=== PATIENT | male | born 2000 | race Caucasian/White ===

== ENCOUNTER 2024-01-26 11:07 | Outpatient (REF) | payer OTHER, SELFPAY ==
[2024-01-26 13:07] LABS: MANUAL DIFF FLAG NO
[2024-01-26 13:11] LABS: Basophils Percent Auto 0.2 % (0-2); Eosinophils Absolute Auto 0.1 X10*3/uL (0.0-0.4); Eosinophils Percent Auto 1.1 % (0-4); Hematocrit 44.2 % (42.0-52.0); Hemoglobin 15.4 g/dl (14.0-18.0); Imm Gran Abs Auto 0.01 X10*3/uL (0.00-0.03); Imm Gran Pct Auto 0.2 % (0.0-0.4); Lymphocytes Absolute Auto 1.8 X10*3/uL (1.2-4.9); Lymphocytes Percent Auto 40.9 % (20-40); Mean Corpuscular HGB Conc 34.8 g/dl (31.0-36.0); Mean Corpuscular Hemoglobin 30.7 pg (27.0-33.0); Mean Corpuscular Volume 88.2 fL (80.0-98.0); Monocytes Absolute Auto 0.4 X10*3/uL (0.1-1.2); Neutrophils Absolute Auto 2.2 x10*3/uL (2.0-8.3); Neutrophils Percent Auto 49.6 % (45-73); Platelet Count 184 X10*3/uL (160-400); Red Blood Count 5.01 X10*6/uL (4.60-5.80); Red Cell Distribution Width 12.1 % (11.0-16.0); White Blood Count 4.4 X10*3/uL (4.8-10.8)
[2024-01-26 13:42] LABS: Alanine Aminotransferase 64 U/L (0-40); Albumin Level 4.4 g/dL (3.5-5.0); Alkaline Phosphatase 83 U/L (39-117); Anion Gap 10 (12-20); Aspartate Amino Transferase 37 U/L (5-37); Bilirubin Total 0.5 mg/dL (0.0-1.0); Blood Urea Nitrogen 21 mg/dL (9-16); Calcium 9.1 mg/dL (8.4-10.2); Carbon Dioxide 26 mmol/L (22-29); Chloride 109 mmol/L (96-108); Cholesterol 238 mg/dL (<200); Estimated Glomerular Filt Rate > 60; Glucose Fasting 104 mg/dL (60-99); HDL Cholesterol 31 mg/dL (>40); LDL Cholesterol Calculated 177 mg/dL (<100); Potassium 4.3 mmol/L (3.3-5.1); Sodium 141 mmol/L (135-145); Total Protein 6.7 g/dL (6.5-8.0); Triglycerides 151 mg/dL (<150)
[2024-01-26 14:00] LABS: Thyroid Stimulating Hormone 1.18 uIU/mL (0.32-4.0); Vitamin D 25-OH Total 47.6 ng/mL (>30)
[2024-01-27 15:23] LABS: Gliadin Deamidated IgA Ab 3.2 U/mL; Gliadin Deamidated IgG Ab <1.0 U/mL; Transglutaminase IgA 2.5 U/mL
== END 2024-01-26 11:08 | disposition home or self-care (01) ==
LOC: HO.HMGCLDS 11:07
PROVIDERS: PCP Internal Medicine; Visit Provider Internal Medicine
DX: K90.41 Non-celiac gluten sensitivity (principal); Z83.79 Family history of other diseases of the digestive system
CPT/HCPCS: 36415; 80053; 80061; 82306; 84443; 85025; 86140; 86258; 86364

== ENCOUNTER 2024-12-05 10:23 | Outpatient (REF) | payer BC, SELFPAY ==
[2024-12-05 13:19] LABS: MANUAL DIFF FLAG NO
[2024-12-05 13:27] LABS: Basophils Percent Auto 0.4 % (0-2); Eosinophils Percent Auto 0.6 % (0-4); Hematocrit 41.5 % (42.0-52.0); Hemoglobin 14.1 g/dl (14.0-18.0); Imm Gran Abs Auto 0.01 X10*3/uL (0.00-0.03); Imm Gran Pct Auto 0.2 % (0.0-0.4); Lymphocytes Absolute Auto 1.9 X10*3/uL (1.2-4.9); Mean Corpuscular Hemoglobin 30.7 pg (27.0-33.0); Mean Corpuscular Volume 90.2 fL (80.0-98.0); Mean Platelet Volume 10.7 fL (9.4-12.4); Monocytes Absolute Auto 0.4 X10*3/uL (0.1-1.2); Monocytes Percent Auto 6.6 % (2-11); Neutrophils Absolute Auto 3.1 x10*3/uL (2.0-8.3); Neutrophils Percent Auto 57.2 % (45-73); Platelet Count 211 X10*3/uL (160-400); Red Cell Distribution Width 12.1 % (11.0-16.0); White Blood Count 5.3 X10*3/uL (4.8-10.8)
[2024-12-05 13:42] LABS: Estimated Average Glucose 94 mg/dL; Hemoglobin A1C 114.2622 umol/L; Hemoglobin A1c % 4.9 % (<6.0)
[2024-12-05 14:05] LABS: PSA,Total (Free>4and<10) 0.32 ng/mL (0.00-4.00)
[2024-12-05 14:11] LABS: Alanine Aminotransferase 38 U/L (0-40); Albumin Level 4.9 g/dL (3.5-5.0); Alkaline Phosphatase 78 U/L (39-117); Anion Gap 12 (12-20); Aspartate Amino Transferase 56 U/L (5-37); Bilirubin Direct 0.2 mg/dL (0.0-0.5); Bilirubin Total 0.8 mg/dL (0.0-1.0); Blood Urea Nitrogen 17 mg/dL (9-16); C Reactive Protein 0.11 mg/dL (< or = 0.50); Calcium 9.7 mg/dL (8.4-10.2); Carbon Dioxide 26 mmol/L (22-29); Chloride 106 mmol/L (96-108); Cholesterol 187 mg/dL (<200); Estimated Glomerular Filt Rate > 60; Glucose Fasting 94 mg/dL (60-99); HDL Cholesterol 39 mg/dL (>40); LDL Cholesterol Calculated 136 mg/dL (<100); Magnesium 1.9 mg/dL (1.6-2.6); Potassium 4.1 mmol/L (3.3-5.1); Sodium 140 mmol/L (135-145); Triglycerides 60 mg/dL (<150); Vitamin D 25-OH Total 59.4 ng/mL (>30)
[2024-12-05 14:28] LABS: Vitamin B12 503 pg/mL (200-900)
[2024-12-06 06:28] LABS: DHEA Sulfate 312 mcg/dL (74-617)
[2024-12-06 10:09] LABS: Lyme Abs Screen <0.90 index
[2024-12-08 19:59] LABS: Lipoprotein A 113 nmol/L (<75)
[2024-12-12 02:59] LABS: Dihydrotestosterone 23 ng/dL (12-65)
[2024-12-17 00:59] LABS: Testosterone, Free 68.1 pg/mL (35.0-155.0); Testosterone, Total 508 ng/dL (250-1100)
== END 2024-12-05 10:24 | disposition home or self-care (01) ==
LOC: HO.HMGCLDS 10:23
PROVIDERS: PCP Internal Medicine; Visit Provider Physician Assistant Medical
DX: Z00.01 Encounter for general adult medical examination with abnormal findings (principal); Z76.89 Persons encountering health services in other specified circumstances; K64.9 Unspecified hemorrhoids; D72.819 Decreased white blood cell count, unspecified; E78.00 Pure hypercholesterolemia, unspecified; R74.01 Elevation of levels of liver transaminase levels; E66.3 Overweight; Z68.29 Body mass index [BMI] 29.0-29.9, adult; Z13.31 Encounter for screening for depression; Z12.5 Encounter for screening for malignant neoplasm of prostate; Z13.1 Encounter for screening for diabetes mellitus
CPT/HCPCS: 36415; 80053; 80061; 80076; 82248; 82306; 82607; 82627; 82642; 82746; 83036; 83695; 83735; 84153; 84402; 84403; 84443; 85025; 86140; 86617; 86618; 96127

== ENCOUNTER 2024-12-05 10:23 | Outpatient (AMB) | payer BC, SELFPAY ==
--- NOTE | 2024-12-05 10:24 | A.OFFPC_ITS ---
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 Accompanied by: Self / Same As Patient Allergies penicillin V Allergy (Unknown, Verified 12/05/24 10:53) Rash Penicillins (PENICILLINS) Allergy (Unknown, Verified 12/05/24 10:53) HIVES Medication List - Last Reconciled 12/05/24 by Nusrat Rivera PA-C No Known Home Meds Tobacco use date assessed: 12/05/24 Dental Screening Dental Screen Date: 12/05/24 Did you have a dental visit in the last 12 months?: No Did you have a dental problem in the last 6 months where you did not have access to dental care?: No HPI Physical HPI Details The patient is a 24-year-old male presenting for an annual physical examination and evaluation of blood in stool. He reports experiencing blood in his stool, which is bright red and not associated with pain, constipation, or straining. The patient suspects hemorrhoids as the cause, potentially exacerbated by heavy lifting and abdominal training. The patient has a history of low white blood cell count, with a previous measurement of 4,000, slightly below the normal range. He was informed that this could be due to inflammation or an underlying illness, and a recheck is planned. The patient has a history of elevated cholesterol, with a total cholesterol level of 238 mg/dL and LDL cholesterol at 177 mg/dL. He has been advised to reduce red meat intake and increase physical activity to manage cholesterol levels. The patient has a history of elevated liver enzymes, specifically an ALT level of 64 U/L, which will be rechecked. The patient reports a headache experienced after prolonged sun exposure, which resolved without intervention. The patient has a surgical history of left ankle reconstruction, left knee surgery, and a recent left thumb UCL surgery. 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 - Exercise: Engages in heavy lifting and abdominal training regularly. - Nutrition: Previously consumed a diet high in red meat, now attempting to eat healthier. - Family: Lives with mother, has a young er half-sister and an older brother. [facility] Medical History (Updated 12/05/24 @ 11:26 by Nusrat Rivera PA-C) Overweight with body mass index (BMI) of 29 to 29.9 in adult Elevated ALT measurement Pure hypercholesterolemia, unspecified Hyperlipidemia LDL goal <100 Leukopenia Hemorrhoids Annual physical exam Encounter to establish care Family History Father No problems noted. Mother Hypertaurodontism Social History Housing: House Alcohol intake: current Alcohol intake frequency: a few times a week Alcohol type: beer Patient Tobacco Use Status: Current someday Tobacco user service: No Current occupational status: employed Cognitive needs: No Hearing needs: No Vision needs: No Questionnaire PHQ-9 Over the last 2 weeks, how often have you been bothered by any of the following problems? 1. Little interest or pleasure in doing things: not at all 2. Feeling down, depressed, or hopeless: not at all 3. Trouble falling or staying asleep, or sleeping too much: not at all 4. Feeling tired or having little energy: not at all 5. Poor appetite or overeating: not at all 6. Feeling bad about yourself - or that you are a failure or have let yourself or your family down: not at all 7. Trouble concentrating on things, such as reading the newspaper or watching television: not at all 8. Moving or speaking so slowly that other people could have noticed. Or the opposite - being so fidgety or restless that you have been moving around a lot more than usual: not at all 9. Thoughts that you would be better off or of hurting yourself in some way: not at all Total score: 0 Depression Screening Interpretation: Negative Depression Screening Done: Yes 28733 - PHQ-9 Billing: Yes Source: Developed by Drs. Abelardo Palma, Zahra Shepard, Luigi Moeller and colleagues, with an educational marilyn from [employer]. Thrive Questionnaire Date Thrive assessed: 12/05/24 I am a: Patient What is your living situation today?: I have a steady place to live Within the past 12 months, did the food you bought not last and you didn't have the money to get more?: Never true Within the past 12 months, did you worry whether your food would run out before you got money to buy more?: Never true Do you have trouble paying for medicines?: No Do you have trouble getting transportation to medical appointments?: No Do you have trouble paying your heating and electricity bill?: No Do you have trouble taking care of your child, family member or friend?: No Do you have trouble with day-to-day activities such as bathing, preparing meals, shopping, managing finances, etc.?: No Are you currently unemployed and looking for a job?: No Are you interested in more education?: No Please select the resources that you would like help with: None Currently or been in a relationship where the following occur: No concerns reported THRIVE Score: 0 AUDIT C Alcohol Use Questionnaire (AUDIT-C) 1. How often do you have a drink containing alcohol?: 2-3 times a week 2. How many drinks containing alcohol do you have on a typical day when you are drinking?: 3 or 4 3. How often do you have six or more drinks on one occasion?: Never Total Score: 4 Score Reviewed/Action Taken: No FLORENCIO-7 AMB Questionnaire FLORENCIO-7 Date FLORENCIO - 7 assessed: 12/05/24 Feeling nervous, anxious, or on edge: 0 = Not at all Not being able to stop or control worryin = Not at all Worrying too much about different things: 0 = Not at all Trouble relaxin = Not at all Being so restless that it is hard to sit still: 0 = Not at all Becoming easily annoyed or irritable: 0 = Not at all Feeling afraid as if something awful might happen: 0 = Not at all Total FLORENCIO-7 score (0-4 normal; 5-9 mild; 10-14 moderate; 15-21 severe): 0 Source: Developed by Drs. Abelardo Palma, Zahar Shepard, Luigi Moeller and colleagues, with an educational marilyn from [employer]. FLORENCIO-7 Assessment Billing FLORENCIO-7 Assessment Tool: FLORENCIO-7 Assessment 18929 Review of Systems Const Details: - Gastrointestinal: Reports blood in stool, denies abdominal pain or constipation. - Neurological: Reports headache after sun exposure, denies ongoing headaches or dizziness. - Cardiovascular: Denies chest pain or dyspnea. - Respiratory: Denies shortness of breath. - Musculoskeletal: Denies joint pain or swelling. Physical exam (Primary Care) Vital Signs: Last Vital Signs Temp 98.8 F 12/05/24 10:33 Pulse 60 12/05/24 10:33 Resp 16 12/05/24 10:33 BP 110/80 12/05/24 10:33 Pulse Ox 96 12/05/24 10:33 Oxygen Delivery Method Room Air 12/05/24 10:33 Care Plan Goal for BP management: <140/90 at Goal BMI result Body Mass Index 18.8 BMI Assessment/Plan discussion: High BMI High, discussed plan: lifestyle, weight reduction, dietary, physical activity and alcohol moderation Tobacco/Smoking Status: Tobacco use Status Tobacco use date assessed 12/05/24 12/05/24 10:28 Patient Tobacco Use Status Former Tobacco user 12/05/24 10:47 PHQ-9: PHQ-9 Score PHQ-9: Total score 0 12/05/24 10:48 Depression Screening Interpretation: Negative Thrive Assessment: Date of Thrive Assessment Date Thrive assessed 12/05/24 12/05/24 10:28 Currently or been in a relationship where the following occur: No concerns reported Const Other: Appearance: Alert. Oriented X3. No acute distress. Head: Normal external exam. Normocephalic. Atraumatic. Eyes: Pupils are equal, round, and reactive to light. Extraocular movements intact. Conjunctiva and sclera normal. Eyelids normal. Ears: External auditory canal normal. Tympanic membranes normal. Throat: Pharynx normal. Uvula midline. Moist mucous membranes. Neck: Normal inspection. Neck supple. Full range of motion. No adenopathy. Thyroid Normal. No meningeal signs. No neck mass noted. Cardiovascular: Normal heart rate and rhythm. Heart sound normal. No murmurs noted. Pulses normal throughout. Respiratory: No respiratory distress. Painless inspiration. Breath sounds normal. No wheezes/rales/rhonchi noted. Chest nontender. No accessory muscle usage noted or decreased air movement noted. Abdomen: Soft and nontender. Bowel sounds normal in all 4 quadrants. No distention noted. No organomegaly noted. No visible injury noted. Back: No costovertebral angle tenderness. Full range of motion noted. Skin: Skin warm and dry. Normal skin color. Normal skin turgor. No rashes/lesions/lacerations noted. Extremities: No lower extremity edema. Extremities exhibit normal range of motion. Extremities nontender. History of left ankle reconstruction and left knee surgery. Recent left thumb UCL surgery. Neuro: Oriented X 3. No motor deficit. No sensory deficit. Reflexes normal. Recent headache noted, likely due to sun exposure, resolved. Results Reviewed Results Reviewed: - Labs: Previous white blood cell count was 4,000/?L, ALT was 64 U/L, total cholesterol was 238 mg/dL, LDL cholesterol was 177 mg/dL, triglycerides were 151 mg/dL. Coding Level of Care Code New Pt Level 4 (17434) New Pt Prev Care 18-39yr(75343 Diagnoses Encounter to establish care Z76.89 Annual physical exam Z00.00 Hemorrhoids K64.9 Leukopenia D72.819 Hyperlipidemia LDL goal <100 E78.5 Pure hypercholesterolemia, unspecified E78.00 Elevated ALT measurement R74.01 Overweight with body mass index (BMI) of 29 to 29.9 in adult E66.3; Z68.29 Additional Codes PHQ-9 - 73628 - PHQ-9 Billing: Yes ([id number]) FLORENCIO-7 Assessment Billing - FLORENCIO-7 Assessment Tool: FLORENCIO-7 Assessment 95445 ([id number]) Assessment & Plan Assessment & Plan (1) Encounter to establish care: Code(s): Z76.89 - Persons encountering health services in other specified circumstances Category: Medical (2) Annual physical exam: Code(s): Z00.00 - Encounter for general adult medical examination without abnormal findings Category: Medical (3) Hemorrhoids: Code(s): K64.9 - Unspecified hemorrhoids Category: Medical Plan: The patient reports bright red blood in stool, suspected to be due to hemorrhoids, potentially exacerbated by heavy lifting and abdominal training. A referral to gastroenterology may be considered if symptoms persist, and a colonoscopy may be warranted to rule out other causes of rectal bleeding. (4) Leukopenia: Code(s): D72.819 - Decreased white blood cell count, unspecified Category: Medical Plan: The patient's previous white blood cell count was slightly below normal at 4,000/?L. A repeat complete blood count (CBC) is planned to monitor the white blood cell count and assess for any underlying conditions. (5) Hyperlipidemia LDL goal <100: Code(s): E78.5 - Hyperlipidemia, unspecified Category: Medical Plan: The patient has elevated cholesterol levels, with a total cholesterol of 238 mg/dL and LDL cholesterol of 177 mg/dL. Lifestyle modifications, including dietary changes to reduce red meat intake and increased physical activity, are recommended. A repeat lipid panel will be conducted to evaluate the effectiveness of these interventions. Condition is chronic and stable will continue to monitor. (6) Pure hypercholesterolemia, unspecified: Code(s): E78.00 - Pure hypercholesterolemia, unspecified Category: Medical Plan: The patient has elevated cholesterol levels, with a total cholesterol of 238 mg/dL and LDL cholesterol of 177 mg/dL. Lifestyle modifications, including dietary changes to reduce red meat intake and increased physical activity, are recommended. A repeat lipid panel will be conducted to evaluate the effectiveness of these interventions. Condition is chronic and stable will continue to monitor. (7) Elevated ALT measurement: Code(s): R74.01 - Elevation of levels of liver transaminase levels Category: Medical Plan: The patient's ALT level was previously elevated at 64 U/L. A follow-up liver function test is planned to monitor enzyme levels and assess liver health. (8) Overweight with body mass index (BMI) of 29 to 29.9 in adult: Code(s): E66.3 - Overweight; Z68.29 - Body mass index [BMI] 29.0-29.9, adult Category: Medical Plan: Patient to improve diet and exercise regimen. Condition is chronic and stable will continue to monitor. Plan Plan Patient was informed and verbally consented to the use of an ambient scribe for clinic note documentation during this visit. 1. Hemorrhoids The patient reports bright red blood in stool, suspected to be due to hemorrhoids, potentially exacerbated by heavy lifting and abdominal training. A referral to gastroenterology may be considered if symptoms persist, and a colonoscopy may be warranted to rule out other causes of rectal bleeding. 2. Low White Blood Cell Count The patient's previous white blood cell count was slightly below normal at 4,000/?L. A repeat complete blood count (CBC) is planned to monitor the white blood cell count and assess for any underlying conditions. 3. Elevated Cholesterol The patient has elevated cholesterol levels, with a total cholesterol of 238 mg/dL and LDL cholesterol of 177 mg/dL. Lifestyle modifications, including diet hussain changes to reduce red meat intake and increased physical activity, are recommended. A repeat lipid panel will be conducted to evaluate the effectiveness of these interventions. 4. Elevated Liver Enzymes The patient's ALT level was previously elevated at 64 U/L. A follow-up liver function test is planned to monitor enzyme levels and assess liver health. During the visit, we discussed the patient's symptoms of blood in stool, likely due to hemorrhoids, and the potential need for a gastroenterology referral if symptoms persist. We reviewed the patient's low white blood cell count and planned for a repeat CBC to monitor levels. The patient's elevated cholesterol was addressed with recommendations for dietary changes and increased physical activity, with a follow-up lipid panel planned. We also discussed the elevated liver enzymes and the need for a follow-up liver function test. Orders: Orders C Reactive Protein Today Z00.00 - Encounter for general adult medical examination without abnormal findings Lipid Panel Today Z00.00 - Encounter for general adult medical examination without abnormal findings Liver Panel Today Z00.00 - Encounter for general adult medical examination without abnormal findings Vitamin B12 and Folate Today Z00.00 - Encounter for general adult medical examination without abnormal findings Vitamin D 25-OH Total Today Z00.00 - Encounter for general adult medical examination without abnormal findings Magnesium Today Z00.00 - Encounter for general adult medical examination without abnormal findings Complete Blood Count Auto Diff Today Z00.00 - Encounter for general adult medical examination without abnormal findings Comprehensive [place]. Panel Fast Today Z00.00 - Encounter for general adult medical examination without abnormal findings Hemoglobin A1c Today Z00.00 - Encounter for general adult medical examination without abnormal findings PSA,Total (Free>4and<10) Today Z00.00 - Encounter for general adult medical examination without abnormal findings TSH reflex Free T4 Today Z00.00 - Encounter for general adult medical examination without abnormal findings Testosterone, Free/Total Today Z00.00 - Encounter for general adult medical examination without abnormal findings DHEA Sulfate Today Z00.00 - Encounter for general adult medical examination without abnormal findings Dihydrotestosterone Today Z00.00 - Encounter for general adult medical examination without abnormal findings Lyme IgG/IgM w/reflex to WB Today Z00.00 - Encounter for general adult medical examination without abnormal findings Lipoprotein A Today Z00.00 - Encounter for general adult medical examination without abnormal findings Patient Instructions: - Schedule and complete blood work as discussed, including CBC, lipid panel, and liver function tests. - Maintain a healthy diet, reducing red meat intake and increasing physical activity. - Monitor for persistent or worsening symptoms of rectal bleeding and report to healthcare provider. - Follow up with healthcare provider for results and further management as needed.
[2024-12-05 10:33] VITALS: BP 110/80; PULSE 60; RESP 16; TEMP 37.1; O2SAT 96; BMI 29.3
--- OUTSIDE RECORDS SUMMARY | 2024-12-05 12:06 | XMS_ITS | Clinical Summary ---
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 Immunizations Immunization Administration Dates Next Due DTaP 5 10/20/2006, 3,2001, 002,2001 H1N1 05/17/2009 HPV Vaccine 9 Valent 01/30/2016,03/11/2015,01/29 Hep A, ped/adol 02/02/2017,01/30/2016 Hep B, ped/adol 03/23/2002,2001,2001 Hib (PRP-T) 08/07/2002, 2,2001, 002 Influenza Split 06/21/2012,03/29/2011,05/01/2010 Influenza, injectable, trivalent 06/12/2009 Influenza, intranasal, quadrivalent 03/11/2015 MMR 09/27/2006,08/07/2002 Meningococcal B Trumenba 05/13/2020 Meningococcal Conj (Menactra) MCV4P 02/02/2018,0 12/11/2013 OPV 10/20/2006, 3,2001, 002 Pneumococcal Conjugate 08/02/2002,2001,2001, 002 Tdap 12/11/2013 Varicella 06/12/2009,08/07/2002 Family History Medical History Relation Name Comments No Known Problems Father Laureano Heart attack Maternal Grandfather Hypothyroidism Mother Eloina Anxiety disorder Other Depression Other Pancreatic cancer Paternal Grandfather Relation Name Status Comments Brother Alive Brother: Alive and well Father Laureano Alive Father: Alive a nd well Father's Brother Paternal un teresa: Anxiety Father's Sister Paternal aun t: Anxiety Maternal Grandfather Alive Maternal Grandmother Alive Mother Eloina Alive Mother: Alive a nd well Other No family histo ry of CVA (Stroke), No family history of Hyperlipidemia, No family history of Developmental dislocation of hip, No family history of Obesity, Family history of Asthma, No family history of Migraines, Family history of Heart disease, No family history of Cancer, No family history of Deafness, Family history of ADD/ADHD, No family history of Diabetes mellitus, No family history of Seizure disorder, No family history of Sudden /MS under age 55, No family history of Thrombophilia, No family history of Strabismus Paternal Grandfather Paterna l grandfather: Cancer, pancreas, Atrial fibrillation Paternal Grandmother Alive Sister Alive Sister: Alive a nd well Social History Tobacco Use Types Packs/Day Years Used Date Smoking Tobacco: Never Smokeless Tobacco: Never Comments:Never smoker Alcohol Use Standard Drinks/Week Comments No 0 (1 standard drink = 0.6 oz pure alcohol) 3 or 4 times, had 4-5 beers, never alone Hunger/Food Answer Date Recorded In the last 12 months, did y ou or your family ever eat less than you felt you should because there wasn't enough money for food? No 05/13/2020 Stable Housing Answer Date Recorded Are you worried that in the next 2 months you may not have stable housing? No 05/13/2020 Transportation Concerns Answer Date Rec orded In the last 12 months, have you or your family ever had to go without healthcare because you didn't have a way to get there? No 05/13/2020 Hazards in Home Answer Date Recorded Think about the place you li ve. Do you have problems with any of the following? Pests (mice or roaches), mold, no/not working smoke detectors, water leaks, no window guards. No 2019 Financing Utilities Answer Date Recorde d In the last 12 months, has t he electric, gas, oil, or water company threatened to shut off your services in your home? No 05/13/2020 Safety at Home Answer Date Recorded Are you or your family worried about feeling saf e in your home? No 05/13/2020 Outside Support Answer Date Recorded Do you feel that you need mo re support from other people or programs to help you care for yourself or your family? No 05/13/2020 Understanding Health Concerns Answer Da te Recorded Do you need help understandi ng your or your child's healthcare needs (diagnosis, medications, plan, etc.)? No 05/13/2020 Financing Health Concerns Answer Date R ecorded In the last 12 months, was t here a time when your child needed to see a doctor or get medications or supplies but could not because of cost? No 05/13/2020 Missing School or Work Answer Date Adrian rded Did you or your child miss s chool or work because of a health problem that could have been avoided? No 05/13/2020 Sex and Gender Information Value Date Recorded Sex Assigned at Not on file Legal Sex Male 5:06 PM EDT Gender Identity Not on file Sexual Orientation Not on file Last Filed Vital Signs Vital Sign Reading Time Taken Comments Blood Pressure 122/88 07/15/2020 11:10 AM EST ma nual Pulse 63 07/15/2020 10:52 AM EST Temperature 36 C (96.8 F) 07/15/2020 10:52 AM EST Respiratory Rate - - Oxygen Saturation - - Inhaled Oxygen Concentration - - Weight 100 kg (220 lb 12.8 oz) 07/15/2020 10:52 AM EST Height 181.6 cm (5' 11.5 ) 07/15/2020 10:[address] Body Mass Index 30.37 07/15/2020 10:52 AM EST Plan of Treatment Health Maintenance Due Date Last Done Comments Men B Vaccine (2 of 2 - Trum enba SCDM 2-dose series) 11/11/2020 05/13/2020 DTaP,Tdap,and Td Vaccines (7 - Td or Tdap) 12/12/2023 12/11/2013, 10/20/2006, 01/04/2003, Additional history exists Influenza Vaccines (#1) 2024 03/11/20 15, 06/21/2012, 03/29/2011, Additional history exists COVID-19 Vaccine (2023-2 5 season) 2024 10/30/2020, 10/01/2020 Hepatitis B Vaccines Completed 03/23/2002, 2001, 2001 Pneumococcal Vaccine Completed 08/02/2002, 2001, 2001, Additional history exists HIB Vaccines Completed 08/07/2002, 11/11, 2001, Additional history exists MMR Vaccines Completed 09/27/2006, 08/07/2002 IPV Vaccines Completed 10/20/2006, 12/12, 2001, Additional history exists Varicella Vaccines Completed 06/12/2009, 08/07/2002 HPV Vaccines Completed 01/30/2016, 02/12, 01/29/2015 Hepatitis A Vaccines Completed 02/02/2017, 01/30/20 16 Meningococcal Vaccine Completed 02/02/2018, 014
== END 2024-12-05 11:10 | disposition home or self-care (01) ==
LOC: HO.HMCSH 10:23
PROVIDERS: PCP Internal Medicine; Visit Provider Physician Assistant Medical
DX: Z00.00 Encounter for general adult medical examination without abnormal findings (principal); E78.5 Hyperlipidemia, unspecified; Z68.29 Body mass index [BMI] 29.0-29.9, adult; E66.3 Overweight; K64.9 Unspecified hemorrhoids; D72.819 Decreased white blood cell count, unspecified; Z76.89 Persons encountering health services in other specified circumstances; E78.00 Pure hypercholesterolemia, unspecified; R74.01 Elevation of levels of liver transaminase levels